=== PATIENT | female | born 1950 | race Two or more races ===

== ENCOUNTER → 2024-04-27 | Outpatient (CLI) | payer MEDICARE, SELFPAY ==
[2024-04-27 12:20] LABS: Cardiac Risk Estimate 4.2 RATIO (3.7-5.6); Cholesterol 298 mg/dL (132-200); HDL Cholesterol 71 mg/dL (40-60); LDL Cholesterol,Calculated 184 mg/dL (0-130); Thyroid Stimulating Hormone 3.71 uIU/mL (0.55-4.78); Triglycerides 216 mg/dL (30-150)
== END | disposition home or self-care (01) ==
PROVIDERS: PCP Family Medicine; Referring Provider Family Medicine; Visit Provider Family Medicine
DX: E03.9 Hypothyroidism, unspecified (principal); E78.2 Mixed hyperlipidemia
CPT/HCPCS: 36415; 80061; 84439; 84443

== ENCOUNTER → 2024-07-27 | Outpatient (CLI) | payer MEDICARE, BC, SELFPAY ==
[2024-07-27 11:51] LABS: Cardiac Risk Estimate 3.8 RATIO (3.7-5.6); Cholesterol 222 mg/dL (132-200); HDL Cholesterol 58 mg/dL (40-60)
[2024-07-27 12:47] LABS: LDL Cholesterol,Calculated 118 mg/dL (0-130); Triglycerides 231 mg/dL (30-150)
== END | disposition home or self-care (01) ==
LOC: COPL 10:26
PROVIDERS: PCP Family Medicine; Referring Provider Family Medicine; Visit Provider Family Medicine
DX: E78.2 Mixed hyperlipidemia (principal)
CPT/HCPCS: 36415; 80061